=== PATIENT | male | born 1990 | race Caucasian/White ===

== ENCOUNTER 2021-02-08 15:50 | Emergency (ER) | payer OTHER ==
[~2021-02-08] VITALS: Ht 177.8 cm; Wt 77.9 kg
[2021-02-08 15:55] VITALS: BP 155/89
[2021-02-08] MEDS ORDERED: LIDOCAINE 1%/EPI 1:100,000 20 ML VIAL. ONE (16:06)
[2021-02-08] MEDS ORDERED: LIDOCAINE 1%/EPI 1:100,000 20 ML VIAL. IJ ONE ×2 (16:15)
[2021-02-08] MEDS ORDERED: BACITRACIN ZINC TOPICAL OINT PACKET. TP ONE (16:15)
--- NOTE | 2021-02-08 16:27 | PHYS DOC ---
Adult General Chief Complaint Chief Complaint: LACERATION/AVULSION HPI HPI Patient is a 31-year-old male who presents with chief complaint of laceration to top of scalp. Patient states he was at work just prior to arrival when a metal door of a industrial mixer came open and hit him on the top of the head. Patient denies loss of consciousness, denies any neck pain, states it bled a lot. Patient denies dizziness, headaches, or visual disturbances. Patient reports a 2/10 on a 1-10 pain scale. Patient does not recall when his last tetanus immunization was. Patient denies any allergies to medications, states he takes no medications at home. Patient denies any other physical complaints or physical concerns. (FERNANDO CARRINGTON APRN) Review of Systems Review of Systems 14 body systems of review of systems have been reviewed. See HPI for pertinent positives and negative responses, otherwise all other systems are negative, nonpertinent or noncontributory. (FERNANDO CARRINGTON APRN) Current Medications Current Medications Current Medications Medications (Trade) Dose Ordered Sig/Maryann Start Time Stop Time Status Last Admin Dose Admin Diphtheria/ Pertussis/Tetanus Vacc (ADACEL TDap SYRINGE) 0.5 ml ONCE ONCE 02/08/21 16:15 02/08/21 16:16 UNV Lidocaine/ Epinephrine (Xylocaine 2%-Epi 1:100,000) 20 ml 1X ONCE 02/08/21 16:15 02/08/21 16:16 UNV (FERNANDO CARRINGTON APRN) Allergies Allergies Allergies Coded Allergies Type Severity Reaction Last Updated Verified No Known Drug Allergies 02/08/21 No (FERNANDO CARRINGTON APRN) Physical Exam Physical Exam Constitutional: Well developed, well nourished, no acute distress, non-toxic appearance. 31-year-old male in no apparent distress. HENT: Normocephalic, atraumatic, bilateral external ears normal, oropharynx moist, no oral exudates, nose normal. No depressions or contusions of the skull appreciated, patient has a stellate shaped laceration to occipital parietal scalp area, total length 2.5 centimeters. Eyes: PERRLA, EOMI, conjunctiva normal, no discharge. Satisfactory six cardinal eye movements. Neck: Normal range of motion, no tenderness, supple, no stridor. No C-spine tenderness, no nuchal rigidity, no meningismus signs. Cardiovascular:Heart rate regular rhythm, no murmur Lungs & Thorax: Bilateral breath sounds clear to auscultation Abdomen: Bowel sounds normal, soft, no tenderness, no masses, no pulsatile masses. Skin: Warm, dry, no erythema, no rash. See HEENT note for skin laceration examination note. Back: No tenderness, no CVA tenderness. Extremities: No tenderness, no cyanosis, no clubbing, ROM intact, no edema. Neurologic: Alert and oriented X 3, normal motor function, normal sensory function, no focal deficits noted. Psychologic: Affect normal, judgement normal, mood normal. (FERNANDO CARRINGTON APRN) Current Patient Data Vital Signs Vital Signs Date Time Temp Pulse Resp B/P (MAP) Pulse Ox O2 Delivery O2 Flow Rate FiO2 02/08/21 15:50 97.7 80 18 155/89 (111) 98 Room Air (FERNANDO CARRINGTON APRN) EKG EKG [] (FERNANDO CARRINGTON APRN) Radiology/Procedures Radiology/Procedures [] (FERNANDO CARRINGTON APRN) Heart Score C/O Chest Pain: No Risk Factors: Risk Factors: DM, Current or recent (<one month) smoker, HTN, HLP, family history of CAD, obesity. Risk Scores: Risk Factors: DM, Current or recent (<one month) smoker, HTN, HLP, family hi story of CAD, obesity. (FERNANDO CARRINGTON APRN) Course & Med Decision Making Course & Med Decision Making Pertinent Labs and Imaging studies reviewed. (See chart for details) 31-year-old male, vital signs reviewed, presents emergency department concerning scalp laceration. Please see laceration repair note. The patient was not sure of his tetanus immunization, the patient's tetanus immunization was brought up-to-date today with DTaP Adacel. Patient gave verbal understanding of discharge home instructions, stapled skin repair care, teetee out in 7 days at primary care, Adacel DTaP immunization medication, return to ER precautions or concerns, patient had no further questions or concerns and was discharged home without incident. (FERNANDO CARRINGTON APRN) Course & Med Decision Making I oversaw on the above date of service of this patient and discussed the care with the [employer] COUNTER MOLDER. I agree with the findings, plan of care, and disposition as documented. Electronically signed, Renea Rodriguez DO (RENEA RODRIGUEZ DO) Kerry Disclaimer Kerry Disclaimer This electronic medical record was generated, in whole or in part, using a voice recognition dictation system. (FERNANDO CARRINGTON APRN) Laceration Repair Lac Repair Indication: Scalp laceration Procedure: The patient was placed in the appropriate position and anesthesia teddy und the laceration was achieved with 6 cc 1% lidocaine with epinephrine. The area was then vigorously cleansed and irrigated with chlorhexidine scrub and normal saline irrigation wash. The laceration was closed with 4 dermal teetee. There were no additional lacerations, the wound area was then dressed with topical bacitracin ointment by ED nursing staff. Total repaired wound length: 2.5 cm. Other Items: The patient's tetanus immunization was brought up-to-date today in the emergency department with DTaP Adacel medication intramuscular injection. The patient tolerated the procedure well. Complications: There were no complications. (FERNANDO CARRINGTON APRN) Departure Departure: Impression: Primary Impression: Scalp laceration Additional Impression: Need for DTaP vaccination Disposition: 01 HOME / SELF CARE / HOMELESS Condition: GOOD Referrals: PCP,BENSON (PCP) ISAIAH FARAH Patient Instructions: Staple Wound Closure, [id number] Additional Instructions: You are seen today in the emergency department for scalp laceration, it was repaired with 4 dermal teetee that require removal in 7 days. Please follow-up with your primary care physician in 7 days for removal, if you are unable to obtain an appointment with your primary care physician I have provided you with a primary care provider James LANDON to follow-up with. As we discussed, please watch for signs and symptoms of infectious process, your wound is not infected and at this time I do not recommend antibiotics. Please return to the emergency department for worsening symptoms or other concerns. You were unsure when your last tetanus immunization was, we brought you up-to-date in the emergency department today with DTaP Adacel medication. You may take Tylenol a nd or Motrin for pain or discomfort. Please apply antibiotic ointment to staple site 2 or 3 times a day until teetee are removed. EMERGENCY DEPARTMENT GENERAL DISCHARGE INSTRUCTIONS Thank you for coming to [facility] ([facility]) today and trusting us with you care. We trust that you had a positivie experience in our Emergency Department. If you wish to speak to the department management, you may call the director at [phone]. YOUR FOLLOW UP INSTRUCTIONS ARE FOLLOWS: 1. Do you have a private Doctor? If you do not have a private doctor, please ask for a resource list of physicians or clinics that may be able to assist you with follow up care. 2. The Emergency Physician has interpreted your x-rays. The X-Ray specialist will also review them. If there is a change in the findings, you will be notified in 48 hours when at all possible. 3. A lab test or culture has been done, your results will be reviewed and you will be notified if you need a change in treatment. ADDITIONAL INSTRUCTIONS AND INFORMATION: 1. Your care today has been supervised by a physician who is specially trained in emergency care. Many problems require more than one evaluation for a complete diagnosis and treatment. We recommend that you schedule your follow up appointment as recommended to ensure complete treatment of you illness or injury. If you are unable to obtain follow up care and continue to have a problem, or if your condition worsens, we recommend that you return to the ED. 2. We are not able to safely determine your condition over the phone nor are we able to give sound medical advice over the phone. For these safety reasons, if you call for medical advice we will ask you to come to the ED for further evaluation. 3. If you have any questions regarding these discharge instructions please call the ED at [phone]. SAFETY INFORMATION: In the interest of safety, wellness, and injury prevention; we encourage you to wear your sealbelt, if you smoke; quite smoking, and we encourage family to use a protective helmet for bicycling and other sporting events that present an increased risk for head injury. IF YOUR SYMPTOMS WORSEN OR NEW SYMPTOMS DEVELOP, OR YOU HAVE CONCERNS ABOUT YOUR CONDITION; OR IF YOUR CONDITION WORSENS WHILE YOU ARE WAITING FOR YOUR FOLLOW UP APPOINTMENT; EITHER CONTACT YOUR PRIMARY CARE DOCTOR, THE PHYSICIAN WHOSE NAME AND NUMBER YOU WERE GIVEN, OR RETURN TO THE ED IMMEDIATELY. Problem Qualifiers Primary Impression: Scalp laceration Encounter type: initial encounter Qualified Codes: S01.01XA - Laceration without foreign body of scalp, initial encounter FERNANDO CARRINGTON APRN February 08, 2021 16:27 RENEA RODRIGUEZ DO February 13, 2021 09:53
[2021-02-08] MEDS ORDERED: DIPH,PERTUSS(ACELL),TET VAC/PF 0.5 ML SYRINGE. VAX IM ONE (16:30)
== END 2021-02-08 16:48 | disposition home or self-care (01) ==
LOC: EDSEX 15:50 → ER 15:50
DX: S01.01XA Laceration without foreign body of scalp, initial encounter (principal); W22.8XXA Striking against or struck by other objects, initial encounter; Y93.89 Activity, other specified; Y92.89 Other specified places as the place of occurrence of the external cause; Y99.8 Other external cause status
CPT/HCPCS: 12001; 90471; 90715; 99283-25

== ENCOUNTER 2021-02-15 13:04 | Emergency (ER) | payer OTHER ==
[~2021-02-15] VITALS: Ht 177.8 cm; Wt 77.9 kg
[2021-02-15 13:15] VITALS: BP 119/76
--- NOTE | 2021-02-15 13:41 | PHYS DOC ---
Past History Past Medical History: No Pertinent History (BAILEY LOJA APRN) Past Surgical History: No Surgical History (BAILEY LOJA APRN) Alcohol Use: None (BAILEY LOJA APRN) General Adult EDM: Chief Complaint: SUTURE/STAPLE REMOVAL HPI: HPI: Patient is a 31-year-old male presents to have the teetee removed. Patient states he received the teetee 7 days ago. Patient denies any signs of infection or issues with teetee. (BAILEY LOJA APRN) Review of Systems: Review of Systems: Constitutional: Denies fever or chills Respiratory: Denies cough or shortness of breath Cardiovascular: Denies chest pain or edema Integument: Staple removal from back on back of head (BAILEY LOJA APRN) Allergies: Allergies: Allergies Coded Allergies Type Severity Reaction Last Updated Verified No Known Drug Allergies 02/08/21 No (BAILEY LOJA APRN) Physical Exam: PE: Constitutional: Well developed, well nourished, no acute distress, non-toxic appearance. [] Cardiovascular:Heart rate regular rhythm, no murmur [] Lungs & Thorax: Bilateral breath sounds clear to auscultation [] Skin: Warm, dry, no erythema, no rash. [] (BAILEY LOJA APRN) Current Patient Data: Vital Signs: Vital Signs Date Time Temp Pulse Resp B/P (MAP) Pulse Ox O2 Delivery O2 Flow Rate FiO2 02/15/21 13:15 98.1 88 14 119/76 (90) 98 (BAILEY LOJA APRN) EKG: EKG: [] (BAILEY LOJA APRN) Radiology/Procedures: Radiology/Procedures: [] (BAILEY LOJA APRN) Heart Score: C/O Chest Pain: No Risk Factors: Risk Factors: DM, Current or recent (<one month) smoker, HTN, HLP, family history of CAD, obesity. Risk Scores: Score 0 - 3: 2.5% MACE over next 6 weeks - Discharge Home Score 4 - 6: 20.3% MACE over next 6 weeks - Admit for Clinical Observation Score 7 - 10: 72.7% MACE over next 6 weeks - Early Invasive Strategies (BAILEY LOJA APRN) Course & Med Decision Making: Course & Med Decision Making Pertinent Labs and Imaging studies reviewed. (See chart for details) [] 4-year-old male presents to have teetee removed. Patient states the teetee have been in place for the last 7 days. Patient denies any complications, no signs of infection. (BAILEY LOJA APRN) Course & Med Decision Making The patient is a 31-year-old male. [place] were removed without incident. (XAVIER ANGULO DO) Dragon Disclaimer: Dragon Disclaimer: This electronic medical record was generated, in whole or in part, using a voice recognition dictation system. (BAILEY LOJA APRN) Attending Co-Sign The patient was seen and interviewed as well as examined at the bedside. The chart was reviewed. The case was discussed. Agree with the plan of care. (XAVIER ANGULO DO) Departure Departure: Impression: Primary Impression: Removal of teetee Disposition: 01 HOME / SELF CARE / HOMELESS Condition: STABLE Referrals: PCP,NO (PCP) Patient Instructions: Staple Removal, Care After Additional Instructions: EMERGENCY DEPARTMENT GENERAL DISCHARGE INSTRUCTIONS Thank you for coming to [facility] (ED) today and trusting us with you care. We trust that you had a positivie experience in our Emergency Department. If you wish to speak to the department management, you may call the director at [phone]. YOUR FOLLOW UP INSTRUCTIONS ARE FOLLOWS: 1. Do you have a private Doctor? If you do not have a private doctor, please ask for a resource list of physicians or clinics that may be able to assist you with follow up care. 2. The Emergency Physician has interpreted your x-rays. The X-Ray specialist will also review them. If there is a change in the findings, you will be notified in 48 hours when at all possible. 3. A lab test or culture has been done, your results will be reviewed and you will be notified if you need a change in treatment. ADDITIONAL INSTRUCTIONS AND INFORMATION: 1. Your care today has been supervised by a physician who is specially trained in emergency care. Many problems require more than one evaluation for a complete diagnosis and treatment. We recommend that you schedule your follow up appointment as recommended to ensure complete treatment of you illness or injury. If you are unable to obtain follow up care and continue to have a problem, or if your condition worsens, we recommend that you return to the ED. 2. We are not able to safely determine your condition over the phone nor are we able to give sound medical advice over the phone. For these safety reasons, if you call for medical advice we will ask you to come to the ED for further evaluation. 3. If you have any questions regarding these discharge instructions please call the ED at [phone]. SAFETY INFORMATION: In the interest of safety, wellness, and injury prevention; we encourage you to wear your sealbelt, if you smoke; quite smoking, and we encourage family to use a protective helmet for bicycling and other sporting events that present an increased risk for head injury. IF YOUR SYMPTOMS WORSEN OR NEW SYMPTOMS DEVELOP, OR YOU HAVE CONCERNS ABOUT YOUR CONDITION; OR IF YOUR CONDITION WORSENS WHILE YOU ARE WAITING FOR YOUR FOLLOW UP APPOINTMENT; EITHER CONTACT YOUR PRIMARY CARE DOCTOR, THE PHYSICIAN WHOSE NAME AND NUMBER YOU WERE GIVEN, OR RETURN TO THE ED IMMEDIATELY. BAILEY LOJA APRN February 15, 2021 13:41 XAVIER ANGULO DO February 16, 2021 06:15
== END 2021-02-15 14:20 | disposition home or self-care (01) ==
LOC: ER 13:04
DX: Z48.02 Encounter for removal of sutures (principal)
CPT/HCPCS: 99281